=== PATIENT | male | born 1935 | race African-American/Black ===

== ENCOUNTER 2018-10-23 07:01 | Day surgery (SDC) | payer MEDICARE, OTHER ==
[~2018-10-23 07:01] MED LIST: DORZOLAMIDE HCL 2%/TIMOLOL MALEAT 0.5% OPH SOLN 10 ML OD PRN; KETOROLAC TROMETHAMINE 0.45% 4 DROP/0.4 ML DROPERETTE OD PRN
[2018-10-23] MEDS ORDERED: CHONDR SU A NA/HYALUR INTRAOC KIT (SURGICARE) ONE (07:08)
[2018-10-23] MEDS ORDERED: LIDOCAINE 1% INJ-PF (10 MG/ML) 30 ML SDV ONE (07:08)
[2018-10-23] MEDS ORDERED: EPINEPHRINE INJ/PF 1 MG/1 ML AMPULE ONE (07:08)
[2018-10-23] MEDS: TETRACAINE HCL 0.5% OPH SOLN 4 ML OD PRN ×3 (07:23→07:48)
[2018-10-23] MEDS: CYCLOPENTOLATE 0.2%/PHENYLEPHRINE 1% OPH SOLN 2 ML OD PRN ×3 (07:24→07:44)
[2018-10-23] MEDS: TROPICAMIDE 1% OPH SOLN 3 ML OD PRN ×3 (07:24→07:44)
[2018-10-23] MEDS: BESIFLOXACIN HCL 0.6% OPH SUSP 5 ML BOTTLE OD PRN ×4 (07:25→08:09)
[2018-10-23] MEDS ORDERED: LIDOCAINE 1%/PHENYLEPHRINE 1.5% 1 ML VIAL ONE (07:29)
[2018-10-23] MEDS ORDERED: MIDAZOLAM 2 MG/2 ML INJ ONE (07:36)
--- NOTE | 2018-10-23 21:28 | [facility] OPERATIVE REPORT E ---
[facility] Operative Report NAME: GAYATHRI HELLER SR AGE: 82Y DATE OF SURGERY: 10/23/2018 ROOM: PREOPERATIVE DIAGNOSIS: CATARACT, RIGHT EYE. POSTOPERATIVE DIAGNOSIS: CATARACT, RIGHT EYE. OPERATION: Cataract extraction with insertion of an IOL of the right eye. SURGEON: ZACHARY JOSUE M.D. ANESTHESIA: Topical. PROCEDURE: After obtaining appropriate consent, the patient's right eye was prepped and draped in sterile fashion as well as the surgeon in a sterile manner and cataract surgery was started. First a paracentesis blade was used to make a side-port incision. Viscoelastic was used to inflate the anterior chamber. Next a 2.4 mm incision was made with a 2.4 mm blade, clear corneal temporally. A continuous capsulorrhexis was made using a cystotome and Utrata forceps. Following this hydrodissection was carried out to make the lens fully loose and mobile and it was rotated 90 degrees. Following this, a jqawwg-xvj-tcmvbrs technique was used to phacoemulsify the lens with a CDE of 8.68. The remaining cortex was removed with irrigation/aspiration. Provisc was instilled into the capsular bag to inflate the bag. A SN60WF, 19.0 diopter lens was placed. The remaining viscoelastic material was removed with irrigation/aspiration. Following this, the incision was found to be watertight. Besivance was instilled into the eye and a protective shield was placed over the eye. The patient returned to the postoperative recovery in stable condition. DICTATING PHYSICIAN: ZACHARY JOSUE M.D. [id number] PHY#: [id number] ID: [id number] JOB#: [id number] ACCT: [id number] cc:ZACHARY JOSUE M.D. >
--- NOTE | 2018-10-23 21:28 | [facility] DISCHARGE SUMMARY E ---
[facility] Discharge Summary NAME: GAYATHRI HELLER SR AGE: 82Y ADMITTED: 10/23/2018 DISCHARGED: This is an 82-year-old patient who underwent cataract extraction of the right eye. DIAGNOSIS: Cataract right eye. He underwent surgery because he was having difficulty driving at night secondary to glare from headlights. He should be on a regular diet. No bending at the waist and no heavy lifting. He should use his Besivance, Prolensa, and Durezol at 3:00 p.m. and 8:00 p.m. and sleep with a rigid shield. I will see him for his 1-day postop tomorrow. DICTATING PHYSICIAN: ZACHARY JOSUE M.D. [id number] PHY#: [id number] ID: [id number] JOB#: [id number] ACCT: [id number] cc:ZACHARY JOSUE M.D. >
== END 2018-10-23 08:50 | disposition home or self-care (01) ==
LOC: SC 07:01
PROVIDERS: ATTEND Internal Medicine
DX: H25.813 Combined forms of age-related cataract, bilateral (principal); H04.123 Dry eye syndrome of bilateral lacrimal glands; H52.4 Presbyopia; I10 Essential (primary) hypertension; E78.00 Pure hypercholesterolemia, unspecified; Z79.899 Other long term (current) drug therapy
CPT/HCPCS: 66984; V2632; J2250; J3490 ×2; A9270; J0171; J2370; 142

== ENCOUNTER 2018-11-13 07:44 | Day surgery (SDC) | payer MEDICARE, OTHER ==
[~2018-11-13 07:44] MED LIST changes: -DORZOLAMIDE HCL 2%/TIMOLOL MALEAT 0.5% OPH SOLN 10 ML OD PRN; -KETOROLAC TROMETHAMINE 0.45% 4 DROP/0.4 ML DROPERETTE OD PRN; +KETOROLAC TROMETHAMINE 0.45% 4 DROP/0.4 ML DROPERETTE OS PRN
[2018-11-13] MEDS ORDERED: EPINEPHRINE INJ/PF 1 MG/1 ML AMPULE ONE (08:22)
[2018-11-13] MEDS ORDERED: CHONDR SU A NA/HYALUR INTRAOC KIT (SURGICARE) ONE (08:23)
[2018-11-13] MEDS ORDERED: LIDOCAINE 1%/PHENYLEPHRINE 1.5% 1 ML VIAL ONE (08:23)
[2018-11-13] MEDS: TETRACAINE HCL 0.5% OPH SOLN 4 ML OS PRN ×3 (08:23→08:48)
[2018-11-13] MEDS: TROPICAMIDE 1% OPH SOLN 3 ML OS PRN ×3 (08:23→08:45)
[2018-11-13] MEDS: CYCLOPENTOLATE 0.2%/PHENYLEPHRINE 1% OPH SOLN 2 ML OS PRN ×3 (08:24→08:45)
[2018-11-13] MEDS: BESIFLOXACIN HCL 0.6% OPH SUSP 5 ML BOTTLE OS PRN ×4 (08:25→09:11)
[2018-11-13] MEDS ORDERED: FENTANYL CITRATE INJ/PF 100 MCG/2 ML AMPUL ONE (08:33)
[2018-11-13] MEDS ORDERED: MIDAZOLAM 2 MG/2 ML INJ ONE (08:33)
[2018-11-13] MEDS: DORZOLAMIDE HCL 2%/TIMOLOL MALEAT 0.5% OPH SOLN 10 ML OS PRN ×2 (09:11)
--- NOTE | 2018-11-13 19:28 | [facility] OPERATIVE REPORT E ---
[facility] Operative Report NAME: GAYATHRI HELLER SR AGE: 82Y DATE OF SURGERY: 11/13/2018 ROOM: PREOPERATIVE DIAGNOSIS: CATARACT, LEFT EYE. POSTOPERATIVE DIAGNOSIS: CATARACT, LEFT EYE. OPERATION: Cataract extraction with insertion of an IOL of the left eye. SURGEON: ZACHARY JOSUE M.D. ANESTHESIA: Topical. PROCEDURE: After obtaining appropriate consent, the patient's left eye was prepped and draped in sterile fashion as well as the surgeon in a sterile manner and cataract surgery was started. First a paracentesis blade was used to make a side-port incision. Viscoelastic was used to inflate the anterior chamber. Next a 2.4 mm incision was made with a 2.4 mm blade, clear corneal temporally. A continuous capsulorrhexis was made using a cystotome and Utrata forceps. Following this hydrodissection was carried out to make the lens fully loose and mobile and it was rotated 90 degrees. Following this, a turzlu-ssp-owobtqw technique was used to phacoemulsify the lens with a CDE of 10.96. The remaining cortex was removed with irrigation/aspiration. Provisc was instilled into the capsular bag to inflate the bag. A SN60WF, 20.0 diopter lens was placed. The remaining viscoelastic material was removed with irrigation/aspiration. Following this, the incision was found to be watertight. Besivance was instilled into the eye and a protective shield was placed over the eye. The patient returned to the postoperative recovery in stable condition. DICTATING PHYSICIAN: ZACHARY JOSUE M.D. [id number] PHY#: [id number] ID: [id number] JOB#: [id number] ACCT: [id number] cc:ZACHARY JOSUE M.D. >
--- NOTE | 2018-11-13 19:29 | [facility] DISCHARGE SUMMARY E ---
[facility] Discharge Summary NAME: GAYATHRI HELLER SR AGE: 82Y ADMITTED: 11/13/2018 DISCHARGED: This is an 82-year-old male who underwent cataract extraction of the left eye. DIAGNOSIS: CATARACT LEFT EYE. He underwent surgery because he was having difficulty driving at night secondary to glare from headlights. He should be on a regular diet. No bending at the waist and no heavy lifting. He should use his Besivance, Prolensa, and Durezol at 3:00 p.m. and 8:00 p.m. and sleep with a rigid shield. I will see him for his 1-day postop tomorrow. DICTATING PHYSICIAN: ZACHARY JOSUE M.D. [id number] PHY#: [id number] ID: [id number] JOB#: [id number] ACCT: [id number] cc:ZACHARY JOSUE M.D. >
== END 2018-11-13 09:56 | disposition home or self-care (01) ==
LOC: SC 07:44
PROVIDERS: ATTEND Internal Medicine
DX: H25.812 Combined forms of age-related cataract, left eye (principal); Z96.1 Presence of intraocular lens; I10 Essential (primary) hypertension; Z79.899 Other long term (current) drug therapy; I49.9 Cardiac arrhythmia, unspecified
CPT/HCPCS: 66984; V2632; J2250; J3490 ×2; A9270; J0171; J3010; J2370; 142